=== PATIENT | male | born 1985 | race Caucasian/White ===

== ENCOUNTER 2017-03-05 17:42 | Emergency (ER) | payer OTHER ==
[2017-03-05 17:46] VITALS: BP 118/74; PULSE 120; TEMP 98.9; BMI 28.5
[2017-03-05] MEDS ORDERED: ACETAMINOPHEN 325 MG TABLET (FP) PO ONE (18:12)
--- NOTE | 2017-03-05 18:18 | PDOC ---
History of Present Illness - General Chief Complaint: Cold Symptoms Stated Complaint: BODY ACHES, CONGESTION Time Seen by Provider: 03/05/17 17:48 History Source: Patient Exam Limitations: No Limitations - History of Present Illness Initial Comments: 03/05/17 18:14 31-year-old male presents to the emergency room with complaints of chills, myalgia, fatigue, nasal congestion, left ear pain, cough, and decreased sleep. Patient denies shortness of breath, sore throat, headache, neck pain, recent travel, recent illness. Patient does state son with similar symptoms treated with an antibiotic earlier this week. Patient denies medical history smoking history or smoking history. Patient states has been taking azithromycin for the past 3 days with no resolution which he states had medication left over from a previous infection. Timing/Duration: reports: getting worse Severity: reports: moderate Possible Cause: Yes: no prior episodes Associated Symptoms: reports: cough, earache, fever/chills, nasal congestion Past History - Past Medical History Allergies/Adverse Reactions: Allergies Allergy/AdvReac Type Severity Reaction Status Date / Time peanut Allergy Severe Difficulty Verified 03/05/17 17:46 Breathing Home Medications: Ambulatory Orders No Home Medications 0 mg PO DAILY 12/04/13 Other medical history: NONE - Psycho/Social/Smoking Cessation Hx Anxiety: No Suicidal Ideation: No Smoking History: Never smoked Have you smoked in the past 12 months: No Hx Alcohol Use: No Drug/Substance Use Hx: No Substance Use Type: None Patient Lives Alone: No Lives with/in: spouse/SO Review of Systems - Review of Systems Able to Perform ROS?: Yes Constitutional: Yes: Chills, Fever, Weakness HEENTM: Yes: Symptoms Reported, Ear Pain, Nose Congestion Respiratory: Yes: Cough Musculoskeletal: Yes: Muscle Weakness Integumentary: No: Symptoms Reported Neurological: No: Symptoms reported Endocrine: No: Symptoms Reported Hematologic/Lymphatic: No: Symptoms Reported *Physical Exam - Vital Signs Last Vital Signs Temp Pulse Resp BP Pulse Ox 98.9 F 120 H 20 118/74 98 03/05/17 17:43 03/05/17 17:43 03/05/17 17:43 03/05/17 17:43 03/05/17 17:43 - Physical Exam General Appearance: Yes: Nourished, Appropriately Dressed. No: Apparent Distress HEENT: positive: EOMI, OLIVERIO, Nasal Congestion, TM Erythema (left). negative: Pale Conjunctivae, Muffled/Hoarse voice (nasal), Pharyngeal Erythema, Tonsillar Exudate, Sinus Tenderness Neck: positive: Supple. negative: Lymphadenopathy (R), Lymphadenopathy (L) Respiratory/Chest: positive: Lungs Clear, Normal Breath Sounds. negative: Respiratory Distress, Accessory Muscle Use Cardiovascular: positive: Regular Rhythm, Regular Rate. negative: Murmur Gastrointestinal/Abdominal: positive: Soft. negative: Tenderness Integumentary: positive: Normal Color, Warm, Moist Neurologic: positive: Motor Strength 5/5 (ambulatory) Medical Decision Making - Medical Decision Making 03/05/17 18:28 patient with URI complaints for the past few days despite taking azithromycin that he had from a previous urinary infection. Patient had a heart rate of 120 in triage with a normal oral temperature. Patient revitalized here and was noted to have a oral temperature of 99 with a heart rate of 122. Patient given Tylenol based on subjective complaints of chills and myalgia. Patient also with noted otitis media along with sinus congestion. Patient will be given a prescription for Flonase, amoxicillin and recommendations to take Tylenol Motrin every 8 hours for adequate pain and fever control. *DC/Admit/Observation/Transfer Diagnosis at time of Disposition: Otitis media, Cough, Nasal congestion - Discharge Dispostion Disposition: HOME Condition at time of disposition: Good - Referrals Referrals: Uche David MD [Primary Care Provider] - - Patient Instructions Printed Discharge Instructions: Middle Ear Infection Additional Instructions: At this point I recommend you take amoxicillin until completed. Next and please also take Motrin or Tylenol every 6-8 hours for adequate fever pain control. Please use Flonase which will alleviate U nasal congestion. If symptoms do not improve in the next 2 days please follow-up with your primary care physician Or emergency department as you may require labwork including x-rays
== END 2017-03-05 18:32 | disposition home or self-care (01) ==
LOC: JERFT 17:42
DX: J06.9 Acute upper respiratory infection, unspecified (principal); H66.92 Otitis media, unspecified, left ear
CPT/HCPCS: 99281-25

== ENCOUNTER 2018-04-16 18:24 | Emergency (ER) | payer OTHER ==
[2018-04-16 18:28] VITALS: BP 149/82; PULSE 92; TEMP 98.2; BMI 30.5
[2018-04-16] MEDS ORDERED: IBUPROFEN 400 MG TABLET (FP) PO ONE ×2 (18:49→18:52)
--- NOTE | 2018-04-16 18:55 | PDOC ---
History of Present Illness - General Chief Complaint: Rash Stated Complaint: RASH Time Seen by Provider: 04/16/18 18:42 History Source: Patient Exam Limitations: Clinical Condition - History of Present Illness Initial Comments: 04/16/18 18:53 Patient with no sig Past medical history present with complain of redness to right under arm which he believes is ingrown hair and has been picking on it causing the redness to worsen. Patient reports same symptoms to pubic area from shaving for 3 days now. Patient reported redness to pubic area worsening due to scratch and an skin rubbing on each other. Denies any other symptoms Timing/Duration: other (3 days) Past History - Past Medical History Allergies/Adverse Reactions: Allergies Allergy/AdvReac Type Severity Reaction Status Date / Time peanut Allergy Severe Difficulty Verified 04/16/18 18:27 Breathing Home Medications: Ambulatory Orders No Home Medications 0 mg PO DAILY 12/04/13 Ibuprofen 800 mg PO TID PRN #12 tablet 04/16/18 Mupirocin Ointment [Bactroban 2% Ointment -] 1 applic TP BID #1 tube 04/16/18 Sulfamethoxazole/Trimethoprim [Bactrim Ds Tablet] 1 each PO BID 7 Days #14 tablet 04/16/18 - Suicide/Smoking/Psychosocial Hx Smoking History: Never smoked Have you smoked in the past 12 months: No Information on smoking cessation initiated: No Hx Alcohol Use: No Drug/Substance Use Hx: No Substance Use Type: None Review of Systems - Review of Systems Able to Perform ROS?: Yes Is the patient limited German proficient: No Constitutional: No: Chills, Diaphoresis, Fever, Loss of Appetite, Malaise, Night Sweats, Weakness, Weight Stable, Unintentional Wgt. Loss, Unexplained wgt Loss, Other HEENTM: No: Eye Pain, Blurred Vision, Tearing, Recent change in vision, Double Vision, Cataracts, Ear Pain, Ocular Prothesis, Ear Discharge, Nose Pain, Nose Congestion, Tinnitus, Nose Bleeding, Hearing Loss, Throat Pain, Throat Swelling , Mouth Pain, Dental Problems, Difficulty Swallowing, Mouth Swelling, Other Respiratory: No: Cough, Orthopnea, Shortness of Breath, SOB with Exertion, SOB at Rest, Stridor, Wheezing, Productive cough, Hemoptysis, Other Cardiac (ROS): No: Chest Pain, Edema, Irregular Heart Rate, Lightheadedness, Palpitations, Syncope, Chest Tightness, Other ABD/GI: No: Abdominal Distended, Abd. Pain w/ defecation, Blood Streaked Bowels , Constipated, Diarrhea, Difficulty Swallowing, Nausea, Poor Appetite, Poor Fluid Intake, Rectal Bleeding, Vomiting, Indigestion, Abdominal cramping, Tarry Stools, Other Musculoskeletal: No: Back Pain, Gout, Joint Pain, Joint Swelling, Muscle Pain, Muscle Weakness, Neck Pain, Joint Stiffness, Other Integumentary: Yes: See HPI, Erythema, Lumps, Rash All Other Systems: Reviewed and Negative *Physical Exam - Vital Signs Last Vital Signs Temp Pulse Resp BP Pulse Ox 98.2 F 92 H 16 149/82 100 04/16/18 18:26 04/16/18 18:26 04/16/18 18:26 04/16/18 18:04/16/18 18:26 - Physical Exam Comments: 04/16/18 18:56 GENERAL: Well developed, well nourished. Awake and alert. No acute distress. HEENT: Normocephalic, atraumatic. PERRLA, EOMI. No conjunctival pallor. Sclera are non- icteric. Moist mucous membranes. Oropharynx is clear. NECK: Supple. Full ROM. No JVD. Carotid pulses 2+ and symmetric, without bruits. No thyromegaly. No lymphadenopathy. CARDIOVASCULAR: Regular rate and rhythm. No murmurs, rubs, or gallops. Distal pulses are 2+ and symmetric. PULMONARY: No evidence of respiratory distress. Lungs clear to auscultation bilaterally. No wheezing, rales or rhonchi. ABDOMINAL: Soft. Non-tender. Non-distended. No rebound or guarding. No organomegaly. Normoactive bowel sounds. MUSCULOSKELETAL Normal range of motion at all joints. No bony deformities or tenderness. No CVA tenderness. EXTREMITIES: No cyanosis. No clubbing. No edema. No calf tenderness. SKIN: Multiple sites of erythema around have follicle with 1 cm induration to right axilla. Multiple erythema to around have follicle of mons pubis and scrotal sac NEUROLOGICAL: Alert, awake, appropriate. Cranial nerves 2-12 intact. No deficits to light touch and temperature in face, upper extremities and lower extremities. No motor deficits in the in face, upper extremities and lower extremities. Normoreflexic in the upper and lower extremities. Normal speech. Toes are down- going bilaterally. Gait is normal without ataxia. PSYCHIATRIC: Cooperative. Good eye contact. Appropriate mood and affect. General Appearance: Yes: Nourished, Appropriately Dressed. No: Apparent Distress Medical Decision Making - Medical Decision Making 04/16/18 18:58 Patient with no sig past medical history present with complain of erythematous rashes to right axilla and pubic area consistent with folliculitis. Patient will be treated for folliculitis with dermatology follow-up *DC/Admit/Observation/Transfer Diagnosis at time of Disposition: Folliculitis - Discharge Dispostion Disposition: HOME Condition at time of disposition: Stable Decision to Admit order: No - Prescriptions Prescriptions: Ibuprofen 800 mg PO TID PRN #12 tablet PRN Reason: pain Mupirocin Ointment [Bactroban 2% Ointment -] 1 applic TP BID #1 tube Sulfamethoxazole/Trimethoprim [Bactrim Ds Tablet] 1 each PO BID 7 Days #14 tablet - Referrals Referrals: Chito Zhang MD [Non Staff, Medical] - - Patient Instructions Printed Discharge Instructions: Folliculitis, DI for Folliculitis Additional Instructions: Take medications as prescribed. Apply warm compresses to areas 2-3 times a day for 5-10 minutes as needed. Follow-up will referred social sciences professor if symptoms persist for more than 5 days - Post Discharge Activity
== END 2018-04-16 19:06 | disposition home or self-care (01) ==
LOC: JERFT 18:24
DX: L73.8 Other specified follicular disorders (principal)
CPT/HCPCS: 99281-25

== ENCOUNTER 2018-08-06 22:18 | Emergency (ER) | payer OTHER ==
[2018-08-06 22:33] VITALS: BP 136/80; PULSE 88; TEMP 98.1; BMI 62.8
[2018-08-06] MEDS ORDERED: IBUPROFEN 400 MG TABLET (FP) PO ONE ×2 (22:48→22:51)
[2018-08-06] MEDS ORDERED: AMOX TR/POT CLAV 875MG/125MG TABLETS (FP) PO ONE (22:53)
[2018-08-06] MEDS ORDERED: AMOX TR/POT CLAV 875MG/125MG TABLETS (FP) ONE (22:56)
--- NOTE | 2018-08-06 23:05 | PDOC ---
History of Present Illness - General Chief Complaint: Toothache Stated Complaint: TOOTHACHE Time Seen by Provider: 08/06/18 22:39 History Source: Patient Exam Limitations: No Limitations - History of Present Illness Initial Comments: 32 yo M w no sig pmh comes to the ER with a toothache and states he believes his tooth is infected. The pain has been present for 5 days and it has progressed to the point where he cannot sleep. The pain radiates around the left side of his face and goes all the way up until the ear. He has an appointment with the dentist on September 08 but states he cannot be seen by a dentist before then. He also says he can't goto a dental urgent care clinic because they do not accept medicaid. He denies any fevers, chills, chest pain, SOB, difficulty breathing, headache, nausea, vomiting, or other focal complaints aside from the toothache. PCP: Uche David Allergies: Peanuts, NKDA Social Hx: Denies smoking, drinking, or illicit drug usage Past History - Past Medical History Allergies/Adverse Reactions: Allergies Allergy/AdvReac Type Severity Reaction Status Date / Time peanut Allergy Severe Difficulty Verified 08/06/18 22:33 Breathing Home Medications: Ambulatory Orders No Home Medications 0 mg PO DAILY 12/04/13 Ibuprofen 800 mg PO TID PRN #12 tablet 04/16/18 Mupirocin Ointment [Bactroban 2% Ointment -] 1 applic TP BID #1 tube 04/16/18 Sulfamethoxazole/Trimethoprim [Bactrim Ds Tablet] 1 each PO BID 7 Days #14 tablet 04/16/18 Amoxicillin/Potassium Clav [Augmentin 875-125 Tablet] 1 each PO BID #20 tablet 08/06/18 COPD: No - Immunization History Immunization Up to Date: Yes - Suicide/Smoking/Psychosocial Hx Smoking History: Never smoked Have you smoked in the past 12 months: No Information on smoking cessation initiated: No Hx Alcohol Use: No Drug/Substance Use Hx: No Substance Use Type: None Review of Systems - Review of Systems Able to Perform ROS?: Yes Comments:: CONSTITUTIONAL: Absent: fever, no chills, no fatigue EYES: Absent: visual changes ENT: Absent: ear pain, no sore throat CARDIOVASCULAR: Absent: chest pain, no palpitations RESPIRATORY: Absent: cough, no SOB GI: Absent: abdominal pain, no nausea, no vomiting, no constipation, no diarrhea GENITOURINARY: Absent: dysuria, no frequency, no hematuria MUSKULOSKELETAL: Absent: back pain, no arthralgia, no myalgia SKIN: Absent: rash NEURO: Absent: headache *Physical Exam - Vital Signs Last Vital Signs Temp Pulse Resp BP Pulse Ox 98.1 F 88 18 136/80 100 08/06/18 22:29 08/06/18 22:29 08/06/18 22:29 08/06/18 22:29 08/06/18 22:29 - Physical Exam General Appearance: Yes: Nourished, Appropriately Dressed, Mild Distress HEENT: positive: EOMI, OLIVERIO, Normal Voice, Pharynx Normal, Other (Erythema around tooth number 19. No visible abscess. No green discharge. ). negative: Pharyngeal Erythema, Tonsillar Exudate, Rhinorrhea Neck: positive: Trachea midline. negative: Lymphadenopathy (R), Lymphadenopathy (L) Respiratory/Chest: positive: Lungs Clear, Normal Breath Sounds Cardiovascular: positive: Regular Rhythm, Regular Rate, S1, S2 Vascular Pulses: Dorsalis-Pedis (R): 2+, Doralis-Pedis (L): 2+ Gastrointestinal/Abdominal: positive: Normal Bowel Sounds, Flat, Soft Lymphatic: negative: Adenopathy Musculoskeletal: positive: Normal Inspection. negative: CVA Tenderness Extremity: positive: Normal Capillary Refill, Normal Inspection, Normal Range of Motion. negative: Tender Integumentary: positive: Normal Color, Dry, Warm Neurologic: positive: cream tester II-XII NML intact, Fully Oriented, Alert, Normal Mood/ Affect, Normal Response Moderate Sedation - Procedure Monitoring Vital Signs: Procedure Monitoring Vital Signs Temperature 98.1 F 08/06/18 22:29 Pulse Rate 88 08/06/18 22:29 Respiratory Rate 18 08/06/18 22:29 Blood Pressure 136/80 08/06/18 22:29 O2 Sat by Pulse Oximetry (%) 100 08/06/18 22:29 ED Treatment Course - Medications Given in the ED: ED Medications Discontinued Medications Generic Name Dose Route Start Last Admin Trade Name Freq PRN Reason Stop Dose Admin Ibuprofen 800 mg 08/06/18 22:48 08/06/18 22:53 Motrin - PO 08/06/18 22:49 800 mg ONCE ONE Administration Medical Decision Making - Medical Decision Making 32 yo M w no sig pmh comes to the ER with a toothache and states he believes his tooth is infected. DDx IBNLT: Gingivitis, periodontitis, cavity/dental carry, other oropharyngeal infection. Plan: Motrin, Augmentin, Dental follow up. *DC/Admit/Observation/Transfer Diagnosis at time of Disposition: Periodontitis - Discharge Dispostion Disposition: HOME Condition at time of disposition: Stable Decision to Admit order: No - Prescriptions Prescriptions: Amoxicillin/Potassium Clav [Augmentin 875-125 Tablet] 1 each PO BID #20 tablet - Referrals Referrals: Uche David MD [Primary Care Provider] - - Patient Instructions Printed Discharge Instructions: DI for Tooth Abscess, DI for Dental Pain Additional Instructions: You came into the ER with tooth pain. We believe you have a tooth infection. [facility] make sure to go pick it up and take it twice a day for the next 7 to 10 days. Make sure to goto your next dentist appointment. Come back to the ER if your pain worsens, you start getting a fever, start vomiting or have any other new or worsening concerns. Thank you for coming to the [facility] ER. We hope you feel better soon! Print Language: CITIZEN OF [place] - Post Discharge Activity
--- NOTE | 2018-08-06 23:08 | PDOC ---
Attending Attestation - Resident Resident Name: Kenyon Green - ED Attending Attestation I have performed the following: I have examined & evaluated the patient, The case was reviewed & discussed with the resident, I agree w/resident's findings & plan, Exceptions are as noted - Physicial Exam PE: 08/06/18 23:06 awake alert NAD. no trismus. no appreciated facial swelling. left lower molar # 19 ttp, mils anterior gum ttp. no fluctuance. no exudate. lungs clear bilaterally heart rrr no mrg. - Medical Decision Making 08/06/18 23:07 differential dental oswaldo, apical abscess. no palp gingival abscess. plan augmentin, motrin and referral for dental. pt has an appointment scheduled for august. told to schedule sooner. recommend dental urgent care. <Cony Arias - Last Filed: 08/06/18 23:06> - HPI HPI: 08/06/18 23:08 The patient is a 32-year-old male with no reported past medical history presents to the emergency department with a toothache. The patient presents with 5 days of progressively worsening pain to the left lower molar tooth. The patient reports he had an appointment with his dentist in August. The patient states secondary to insurance issues hes unable to follow up at a Dental UC. Denies any draining, fever, chills, difficulty swallowing or breathing. Allergies: peanut. Social history: No tobacco, alcohol or drug use reported. PCP: Uche Ramirez MD <Pilar Alegre - Last Filed: 08/06/18 23:09>
== END 2018-08-06 23:29 | disposition home or self-care (01) ==
LOC: JER 22:18
DX: K05.30 Chronic periodontitis, unspecified (principal)
CPT/HCPCS: 99282-25

== ENCOUNTER 2018-09-05 11:23 | Emergency (ER) | payer OTHER ==
[2018-09-05 11:46] VITALS: BP 130/79; PULSE 84; TEMP 97.5; BMI 30.3
--- NOTE | 2018-09-05 12:38 | PDOC ---
History of Present Illness - General Chief Complaint: Pain, Acute Stated Complaint: TOOTHACHE Time Seen by Provider: 09/05/18 12:25 Exam Limitations: Clinical Condition - History of Present Illness Initial Comments: 09/05/18 12:39 Patient with no significant past medical history present with complaint of pain and swelling to left lower gums and tooth. Patient was seen a month ago for same symptoms and discharged home on Augmentin for 10 days to follow-up with dentist and patient reported still waiting up for dental appointment next week. Patient reported he started chewing on left side and now having pain for the past 3 days. Patient reported taking Motrin 600 mg this morning which helped with the pain. Patient denies any other symptoms Timing/Duration: other (3 day) Past History - Past Medical History Allergies/Adverse Reactions: Allergies Allergy/AdvReac Type Severity Reaction Status Date / Time peanut Allergy Severe Difficulty Verified 09/05/18 11:41 Breathing Home Medications: Ambulatory Orders Ibuprofen 800 mg PO Q8H PRN #20 tablet 09/05/18 Lidocaine 2% Viscous Oral [Xylocaine 2% Viscous Oral -] 2 ml PO Q6H PRN #30 ml 09/05/18 COPD: No - Immunization History Immunization Up to Date: Yes - Suicide/Smoking/Psychosocial Hx Smoking History: Never smoked Have you smoked in the past 12 months: No Hx Alcohol Use: No Drug/Substance Use Hx: No Substance Use Type: None Review of Systems - Review of Systems Able to Perform ROS?: Yes Is the patient limited Finnish proficient: No Constitutional: No: Fever HEENTM: Yes: See HPI (left lower teeth and gum pain), Dental Problems Respiratory: No: Symptoms reported Cardiac (ROS): No: Symptoms Reported ABD/GI: No: Nausea, Vomiting All Other Systems: Reviewed and Negative *Physical Exam - Vital Signs Last Vital Signs Temp Pulse Resp BP Pulse Ox 97.5 F L 84 20 130/79 98 09/05/18 11:41 09/05/18 11:41 09/05/18 11:41 09/05/18 11:41 09/05/18 11:41 - Physical Exam Comments: 09/05/18 12:42 GENERAL: Well developed, well nourished. Awake and alert. No acute distress. HEENT: Mild swelling to left lower comes to left lower premolars. No evidence of gum infection. Normocephalic, atraumatic. PERRLA, EOMI. No conjunctival pallor. Sclera are non-icteric. Moist mucous membranes. Oropharynx is clear. NECK: Supple. Full ROM. CARDIOVASCULAR: Regular rate and rhythm. No murmurs, rubs, or gallops. Distal pulses are 2+ and symmetric. PULMONARY: No evidence of respiratory distress. Lungs clear to auscultation bilaterally. No wheezing, rales or rhonchi. ABDOMINAL: Soft. Non-tender. Non-distended. No rebound or guarding. No organomegaly. Normoactive bowel sounds. MUSCULOSKELETAL Normal range of motion at all joints. NEUROLOGICAL: Alert, awake, appropriate. Gait is normal without ataxia. PSYCHIATRIC: Cooperative. Good eye contact. Appropriate mood General Appearance: Yes: Nourished, Appropriately Dressed. No: Apparent Distress Moderate Sedation - Procedure Monitoring Vital Signs: Procedure Monitoring Vital Signs Temperature 97.5 F L 09/05/18 11:41 Pulse Rate 84 09/05/18 11:41 Respiratory Rate 20 09/05/18 11:41 Blood Pressure 130/79 09/05/18 11:41 O2 Sat by Pulse Oximetry (%) 98 09/05/18 11:41 Medical Decision Making - Medical Decision Making 09/05/18 12:43 Patient with no significant past medical history present with complaint of three -day history of pain to left lower gums and lower premolars. Patient was seen a month ago for same symptoms and discharged home on Augmentin for 10 day course with advised to follow-up with dentist but has not followed up yet and reported has appointment for next week. No evidence of periodental abscess or infection on exam. Patient is stable for discharge on ibuprofen and viscous lidocaine as needed for pain with follow-up with dentist. *DC/Admit/Observation/Transfer Diagnosis at time of Disposition: Periodontitis, Toothache - Discharge Dispostion Disposition: HOME Condition at time of disposition: Stable Decision to Admit order: No - Prescriptions Prescriptions: Ibuprofen 800 mg PO Q8H PRN #20 tablet PRN Reason: tooth pain Lidocaine 2% Viscous Oral [Xylocaine 2% Viscous Oral -] 2 ml PO Q6H PRN #30 ml PRN Reason: pain - Referrals Referrals: Uche David MD [Primary Care Provider] - - Patient Instructions Printed Discharge Instructions: DI for Root Canal Treatment Additional Instructions: Take medications as prescribed for pain. Follow-up with dentist as scheduled. - Post Discharge Activity
== END 2018-09-05 12:45 | disposition home or self-care (01) ==
LOC: JERFT 11:23
DX: K08.89 Other specified disorders of teeth and supporting structures (principal); K05.5 Other periodontal diseases
CPT/HCPCS: 99281-25

== ENCOUNTER 2019-01-25 14:37 | Emergency (ER) | payer OTHER | END 2019-01-25 15:59 | disposition home or self-care (01) | LOC: JERFT 14:37 ==

== ENCOUNTER 2019-06-07 21:52 | Emergency (ER) | payer OTHER ==
[2019-06-07 22:17] VITALS: BP 134/74; PULSE 88; TEMP 98.4; BMI 29.8
[2019-06-07] MEDS ORDERED: CEPHALEXIN MONOHYDRATE 500 MG CAPSULE (UD) PO ONE (23:55)
[2019-06-07] MEDS ORDERED: SULFAMETHOXAZOLE/TRIMETHOPRIM 800MG/160MG D.S. TABLET PO ONE (23:55)
[2019-06-08] MEDS ORDERED: SULFAMETHOXAZOLE/TRIMETHOPRIM 800MG/160MG D.S. TABLET ONE (00:03)
[2019-06-08] MEDS ORDERED: CEPHALEXIN MONOHYDRATE 500 MG CAPSULE (UD) ONE (00:03)
--- NOTE | 2019-06-08 00:41 | PDOC ---
History of Present Illness - General Chief Complaint: Pain Stated Complaint: RT ELBOW PAIN Time Seen by Provider: 06/07/19 23:48 History Source: Patient Exam Limitations: No Limitations Past History - Past Medical History Allergies/Adverse Reactions: Allergies Allergy/AdvReac Type Severity Reaction Status Date / Time peanut Allergy Severe Difficulty Verified 01/25/19 14:39 Breathing Home Medications: Ambulatory Orders Cyclobenzaprine HCl 10 mg PO Q8H PRN #14 tablet 01/25/19 Naproxen [Naprosyn -] 500 mg PO BID #30 tablet 01/25/19 Cephalexin [Keflex] 500 mg PO QID #27 capsule 06/08/19 Sulfamethoxazole/Trimethoprim [Bactrim Ds -] 1 tab PO BID #13 tablet 06/08/19 COPD: No - Immunization History Immunization Up to Date: Yes - Psycho Social/Smoking Cessation Hx Smoking History: Never smoked Have you smoked in the past 12 months: No Hx Alcohol Use: No Drug/Substance Use Hx: No Substance Use Type: None *Physical Exam - Vital Signs Last Vital Signs Temp Pulse Resp BP Pulse Ox 98.4 F 88 18 134/74 100 06/07/19 22:10 06/07/19 22:10 06/07/19 22:10 06/07/19 22:10 06/07/19 22:10 - Physical Exam General Appearance: No: Apparent Distress Extremity: positive: Other (+R elbow olecranon swelling, +slight redness around site, no fluctuance, no crepitus, FROM of R elbow, no pain with movement of elbow) Integumentary: negative: Ecchymosis, Bruising Neurologic: positive: Alert, Normal Mood/Affect ED Treatment Course - RADIOLOGY Radiology Studies Ordered: Category Date Time Status ELBOW-RIGHT [RAD] Stat Radiology 06/07/19 23:55 Taken - Medications Given in the ED: ED Medications Discontinued Medications Generic Name Dose Route Start Last Admin Trade Name Freq PRN Reason Stop Dose Admin Cephalexin HCl 500 mg 06/07/19 23:55 06/08/19 00:06 Keflex - PO 06/07/19 23:56 500 mg ONCE ONE Administration Trimethoprim/Sulfamethoxazole 1 each 06/07/19 23:55 06/08/19 00:06 Bactrim Ds - PO 06/07/19 23:56 1 each ONCE ONE Administration Medical Decision Making - Medical Decision Making 33-year-old male with no significant past medical history presents with right elbow injury from 2 weeks ago. Patient states he fell down a couple steps and injured the right elbow. States he reinjured it again 2 days ago when he hit against the door. However is concerned this time because noticed that the site is now red and inflamed. Denies fevers, pustular discharge. Right elbow x-ray normal Likely this is a right olecranon bursitis with possible overlying infection Not concern for septic arthritis based on exam Right elbow Yovany wrapped Given Keflex and Bactrim We will also refer to orthopedics as d/w Dr. Savage 06/08/19 00:36 Discharge - Discharge Information Problems reviewed: Yes Clinical Impression/Diagnosis: Olecranon bursitis of right elbow Condition: Stable Disposition: HOME - Admission No - Additional Discharge Information Prescriptions: Cephalexin [Keflex] 500 mg PO QID #27 capsule Sulfamethoxazole/Trimethoprim [Bactrim Ds -] 1 tab PO BID #13 tablet Prescription Drug Monitoring Program (I-STOP) results: I-STOP not reviewed - Follow up/Referral Referrals: Uche David MD [Primary Care Provider] - 2 Days Augustine Strickland MD [Staff Physician] - 2 Days - Patient Discharge Instructions Patient Printed Discharge Instructions: DI for Elbow Bursitis Additional Instructions: Thank you for choosing [facility]. It was a pleasure taking care of you. You may take Motrin 600 mg every 6 hours by mouth as needed for pain. Take Motrin with food Take the antibiotics as prescribed. You were also referred to orthopedic doctor Keep the yovany wrap to help decrease the swelling Return to the Emergency Department if your symptoms worsen or persist, you have fever, worsening swelling, streaking, purulent drainage or other concerning symptoms. - Post Discharge Activity
== END 2019-06-08 00:49 | disposition home or self-care (01) ==
LOC: JER 21:52
DX: M70.21 Olecranon bursitis, right elbow (principal); Y93.89 Activity, other specified; W22.8XXA Striking against or struck by other objects, initial encounter; Y92.89 Other specified places as the place of occurrence of the external cause; Y99.8 Other external cause status; Z91.010 Allergy to peanuts
CPT/HCPCS: 73070-TC-RT-FY; 99282-25

== ENCOUNTER 2019-07-08 11:14 | Emergency (ER) | payer OTHER ==
[2019-07-08 11:21] VITALS: BP 111/72; PULSE 98; TEMP 98.1; BMI 28.5
[2019-07-08] MEDS ORDERED: ACETAMINOPHEN 325 MG TABLET (FP) PO ONE (12:16)
--- NOTE | 2019-07-08 12:16 | PDOC ---
History of Present Illness - General Chief Complaint: Cold Symptoms Stated Complaint: COLD SYMPTOMS Time Seen by Provider: 07/08/19 11:22 History Source: Patient - History of Present Illness Timing/Duration: reports: other Associated Symptoms: reports: cough, earache, nasal congestion, nasal drainage Past History - Past Medical History Allergies/Adverse Reactions: Allergies Allergy/AdvReac Type Severity Reaction Status Date / Time peanut Allergy Severe Difficulty Verified 07/08/19 11:17 Breathing Home Medications: Ambulatory Orders Cyclobenzaprine HCl 10 mg PO Q8H PRN #14 tablet 01/25/19 Naproxen [Naprosyn -] 500 mg PO BID #30 tablet 01/25/19 Cephalexin [Keflex] 500 mg PO QID #27 capsule 06/08/19 Sulfamethoxazole/Trimethoprim [Bactrim Ds -] 1 tab PO BID #13 tablet 06/08/19 Acetaminophen [Tylenol] 650 mg PO Q6H #30 capsule 07/08/19 Amoxicillin - [Amoxicillin 500mg Capsule -] 500 mg PO BID #14 capsule 07/08/19 Famotidine [Pepcid] 20 mg PO BID #14 tablet 07/08/19 Mag Hydrox/Al Hydrox/Simeth [Mylanta Suspension -] 30 ml PO Q6H #1 bottle COPD: No - Immunization History Immunization Up to Date: Yes - Psycho Social/Smoking Cessation Hx Smoking History: Never smoked Have you smoked in the past 12 months: No Hx Alcohol Use: No Drug/Substance Use Hx: No Substance Use Type: None Review of Systems - Review of Systems Constitutional: No: Chills, Fever HEENTM: Yes: Ear Pain, Nose Congestion Respiratory: No: Cough *Physical Exam - Vital Signs Last Vital Signs Temp Pulse Resp BP Pulse Ox 98.1 F 98 H 20 111/72 100 07/08/19 11:18 07/08/19 11:18 07/08/19 11:18 07/08/19 11:18 07/08/19 11:18 - Physical Exam General Appearance: Yes: Appropriately Dressed. No: Apparent Distress HEENT: positive: Normal Voice, Pharynx Normal, Other (R TM erythematous and retracted, no tenderness, swelling or discharge in canal, no swelling/ttp over mastoid). negative: Scleral Icterus (R), Scleral Icterus (L) Neck: positive: Supple Respiratory/Chest: negative: Respiratory Distress Gastrointestinal/Abdominal: positive: Normal Bowel Sounds, Soft. negative: Tender, Distended, Guarding, Rebound Integumentary: positive: Dry, Warm Neurologic: positive: Fully Oriented, Alert, Normal Mood/Affect Medical Decision Making - Medical Decision Making 07/08/19 12:25 33-year-old male, no significant history, here with multiple complaints. Patient complaining of nasal congestion with clear rhinorrhea and severe right ear pain x 1-2 days. No cough fever or chills. Son with similar symptoms. Patient also complaining of vague epigastric pain, sometimes worse after he eats , with excessive belching x2 days. No nausea, vomiting or change in bowel movements. States he has been eating spicy food recently. see exam OME -dc w/ abx, pain control Possible gastritis given hx Abd benign Dc w/ GI cocktail PMD f/u as needed Discharge - Discharge Information Problems reviewed: Yes Clinical Impression/Diagnosis: Epigastric abdominal pain Otitis media Qualifiers: Otitis media type: unspecified Chronicity: acute Qualified Code(s): H66.90 - Otitis media, unspecified, unspecified ear Condition: Good Disposition: HOME - Additional Discharge Information Prescriptions: Acetaminophen [Tylenol] 650 mg PO Q6H #30 capsule Amoxicillin - [Amoxicillin 500mg Capsule -] 500 mg PO BID #14 capsule Famotidine [Pepcid] 20 mg PO BID #14 tablet Mag Hydrox/Al Hydrox/Simeth [Mylanta Suspension -] 30 ml PO Q6H #1 bottle - Follow up/Referral Referrals: Uche David MD [Primary Care Provider] - - Patient Discharge Instructions Patient Printed Discharge Instructions: Middle Ear Infection, Gastritis Additional Instructions: Take medications as prescribed and return for worsening of symptoms - Post Discharge Activity
[2019-07-08] MEDS ORDERED: ACETAMINOPHEN 325 MG TABLET (FP) ONE (12:18)
== END 2019-07-08 13:10 | disposition home or self-care (01) ==
LOC: JERFT 11:14
DX: H66.91 Otitis media, unspecified, right ear (principal); R10.13 Epigastric pain; Z91.010 Allergy to peanuts
CPT/HCPCS: 99281-25

== ENCOUNTER 2021-06-24 16:49 | Emergency (ER) | payer OTHER ==
[2021-06-24 17:03] VITALS: BP 119/76; PULSE 96; TEMP 97.3
== END 2021-06-24 17:54 | disposition home or self-care (01) ==
LOC: JERFT 16:49
DX: R21 Rash and other nonspecific skin eruption (principal)
CPT/HCPCS: 36415; 87491; 87591; 99283-25

== ENCOUNTER 2022-09-26 22:19 | Emergency (ER) | payer OTHER ==
[2022-09-26] MEDS ORDERED: SODIUM CHLORIDE 0.9% 500 ML INFUS.BAG IV ONE (22:26)
[2022-09-26] MEDS ORDERED: IBUPROFEN 600 MG TABLET (FP) PO ONE ×2 (22:31)
[2022-09-26 23:57] VITALS: BP 145/98; PULSE 123; RESP 18; TEMP 98.1; BMI 32.3
== END 2022-09-26 23:58 | disposition home or self-care (01) ==
LOC: FER 22:19
DX: R10.31 Right lower quadrant pain (principal); M54.50 Low back pain, unspecified; M79.10 Myalgia, unspecified site
CPT/HCPCS: 0241U-QW; 71046-TC-FY; 99284-25

== ENCOUNTER 2023-05-24 21:36 | Emergency (ER) | payer OTHER ==
[2023-05-24 21:50] VITALS: BP 136/87; PULSE 102; RESP 18; TEMP 98.2; BMI 27.3
[2023-05-24] MEDS ORDERED: DIPHTH,PERTUSS(ACELL),TET 0.5 ML DISP.SYRIN IM ONE ×2 (22:49→23:29)
[2023-05-24] MEDS ORDERED: KETOROLAC TROMETHAMINE 30 MG/1 ML VIAL IM ONE (22:50)
[2023-05-24] MEDS ORDERED: KETOROLAC TROMETHAMINE 30 MG/1 ML VIAL ONE (23:29)
[2023-05-25] MEDS ORDERED: AMOX TR/POT CLAV 875MG/125MG TABLETS (FP) ONE (00:15)
[2023-05-25] MEDS ORDERED: AMOX TR/POT CLAV 875MG/125MG TABLETS (FP) PO ONE (00:15)
== END 2023-05-25 01:07 | disposition home or self-care (01) ==
LOC: JERFT 21:36
PROC: 3E0233Z Introduction of Anti-inflammatory into Muscle, Percutaneous Approach (ICD-10-PCS; principal; 2023-05-24)
PROC: 3E0234Z Introduction of Serum, Toxoid and Vaccine into Muscle, Percutaneous Approach (ICD-10-PCS; 2023-05-24)
DX: S01.81XA Laceration without foreign body of other part of head, initial encounter (principal); J01.10 Acute frontal sinusitis, unspecified; R68.84 Jaw pain; W50.3XXA Accidental bite by another person, initial encounter
CPT/HCPCS: 70486-TC; 90471; 90715; 96372; 99284-25

== ENCOUNTER 2023-05-30 11:07 | Emergency (ER) | payer OTHER ==
[2023-05-30 11:14] VITALS: BP 107/73; PULSE 97; RESP 18; TEMP 98; BMI 27.3
== END 2023-05-30 11:47 | disposition home or self-care (01) ==
LOC: JERFT 11:07
DX: Z48.02 Encounter for removal of sutures (principal)
CPT/HCPCS: 99281-25

== ENCOUNTER 2023-06-18 19:44 | Emergency (ER) | payer OTHER ==
[2023-06-18 19:49] VITALS: BP 126/84; PULSE 102; RESP 18; TEMP 98.5; BMI 29.7
[2023-06-18] MEDS ORDERED: SODIUM CHLORIDE 0.9% 500 ML INFUS.BAG IV ONE (20:00)
[2023-06-18] MEDS ORDERED: ALPRAZolam 0.25 MG TABLET PO ONE (20:09)
[2023-06-18] MEDS ORDERED: ALPRAZolam 0.25 MG TABLET ONE (20:51)
[2023-06-18 20:58] LABS: BASO % 1.1 % (0-2.0); EOS % 1.8 % (0-4.5); HEMATOCRIT 46.3 % (35.4-49); HEMOGLOBIN 15.4 GM/dL (11.7-16.9); LYMPH % 22.4 % (8-40); MCH 27.8 pg (25.7-33.7); MCHC 33.2 g/dl (32.0-35.9); MEAN CELL VOLUME 83.7 fl (80-96); MEAN PLT VOLUME 8.1 fl (7.5-11.1); MONO % 8.4 % (3.8-10.2); NEUT % 66.3 % (42.8-82.8); PLATELET COUNT 244 10^3/uL (134-434); RBC 5.53 M/mm3 (4.00-5.60); RDW 13.6 % (11.9-15.9); WHITE BLOOD COUNT 8.5 K/mm3 (4.0-10.0)
[2023-06-18 21:30] LABS: POTASSIUM 3.8 mmol/L (3.5-5.1)
[2023-06-18 21:32] LABS: CALCIUM 9.3 mg/dL (8.5-10.1)
[2023-06-18 21:33] LABS: ALBUMIN 3.8 g/dl (3.4-5.0); BLOOD UREA NITROGEN 11.4 mg/dL (7-18); MAGNESIUM 2.1 mg/dL (1.8-2.4)
[2023-06-18 21:37] LABS: BILIRUBIN,TOTAL 0.9 mg/dL (0.2-1)
[2023-06-18 21:38] LABS: TOT PROT 7.2 g/dl (6.4-8.2)
== END 2023-06-18 22:16 | disposition home or self-care (01) ==
LOC: JER 19:44
DX: F41.9 Anxiety disorder, unspecified (principal); R06.02 Shortness of breath; R07.9 Chest pain, unspecified
CPT/HCPCS: 36415; 71046-TC-FY; 80053; 83735; 84439; 84443; 84484; 85025; 93005; 93010; 99285-25